=== PATIENT | female | born 1995 | race Caucasian/White ===

== ENCOUNTER 2021-11-13 13:57 | Emergency (ER) | payer OTHER ==
[~2021-11-13 13:57] MED LIST: COLACE 100MG C100 MG PO; FERROUS SULFAT325 MG PO; IBUPROFEN600 MG PO; IBUPROFEN800 MG PO; LORTAB 5-325 M1 EACH PO; PNV 29-1 TABLE1 EACH PO; TYLENOL 325MG325 MG PO; ZANTAC150 MG PO
[2021-11-13 15:09] LABS: HEMOGLOBIN 11.4 gm/dl (12.3-15.3); RED BLOOD COUNT 4.28 M/UL (4.00-5.10); WHITE BLOOD COUNT 13.3 K/UL (4.5-11.0)
[2021-11-13 15:24] LABS: BUN/CREATININE RATIO 6 (0-10)
[2021-11-13] MEDS ORDERED: AMOXICILLIN500 MG PO (17:06)
== END 2021-11-13 17:33 | disposition home or self-care (01) ==
LOC: ER1 13:57
PROVIDERS: Student in an Organized Health Care Education/Training Program
DX: J02.9 Acute pharyngitis, unspecified (principal); F17.200 Nicotine dependence, unspecified, uncomplicated; Z88.1 Allergy status to other antibiotic agents
CPT/HCPCS: 80053; 81001; 85025; 87081; 87880; 96374; 96375; 99283; J0696; J1100